=== PATIENT | male | born 1960 ===

== ENCOUNTER 2020-09-27 07:25 | Day surgery (SDC) | payer OTHER ==
[~2020-09-27] VITALS: Ht 185.4 cm; Wt 108.4 kg
[~2020-09-27 07:25] MED LIST: REVATIO20 MG PO
== END 2020-09-27 09:32 | disposition home or self-care (01) ==
LOC: ORSCSDS 07:25
PROVIDERS: Internal Medicine Gastroenterology
PROC: 0DBL8ZX Excision of Transverse Colon, Via Natural or Artificial Opening Endoscopic, Diagnostic (ICD-10-PCS; principal; 2020-09-27 08:30)
PROC: 0DBK8ZX Excision of Ascending Colon, Via Natural or Artificial Opening Endoscopic, Diagnostic (ICD-10-PCS; principal; 2020-09-27 08:30)
PROC: 0DB58ZX Excision of Esophagus, Via Natural or Artificial Opening Endoscopic, Diagnostic (ICD-10-PCS; principal; 2020-09-27 08:30)
PROC: 0DB78ZX Excision of Stomach, Pylorus, Via Natural or Artificial Opening Endoscopic, Diagnostic (ICD-10-PCS; principal; 2020-09-27 08:30)
DX: K21.9 Gastro-esophageal reflux disease without esophagitis (principal); Z12.11 Encounter for screening for malignant neoplasm of colon; Z86.010 Personal history of colon polyps; D12.2 Benign neoplasm of ascending colon; D12.3 Benign neoplasm of transverse colon; K44.9 Diaphragmatic hernia without obstruction or gangrene; K29.70 Gastritis, unspecified, without bleeding; K57.30 Diverticulosis of large intestine without perforation or abscess without bleeding; K64.1 Second degree hemorrhoids; F17.220 Nicotine dependence, chewing tobacco, uncomplicated; Z79.899 Other long term (current) drug therapy; Z79.82 Long term (current) use of aspirin
CPT/HCPCS: 88305; 88342; J0330; J0461; J2405; J2704; J7120

== ENCOUNTER 2022-08-22 14:05 | Emergency (ER) | payer OTHER ==
[~2022-08-22] VITALS: Ht 185.4 cm; Wt 111.1 kg
[2022-08-22] MEDS ORDERED: CYCL10 PO ×2 (16:58→17:34)
[2022-08-22] MEDS ORDERED: Norco 5-325 Ta1 EACH PO ×2 (16:58→17:34)
== END 2022-08-22 17:13 | disposition home or self-care (01) ==
LOC: ER 14:05
DX: S22.42XA Multiple fractures of ribs, left side, initial encounter for closed fracture (principal); W31.89XA Contact with other specified machinery, initial encounter; Z79.899 Other long term (current) drug therapy
CPT/HCPCS: 71101

== ENCOUNTER → 2023-08-18 | Outpatient (CLI) | payer OTHER ==
[~2023-08-18] MED LIST changes: +CYCL10 PO; +Norco 5-325 Ta1 EACH PO
== END ==
LOC: LAB SHORT 12:25 → LAB 12:25
DX: C44.619 Basal cell carcinoma of skin of left upper limb, including shoulder (principal)
CPT/HCPCS: 88305